=== PATIENT | female | born 1960 | race American Indian/Alaskan Native ===

== ENCOUNTER 2017-03-09 13:53 | Emergency (ER) | payer MEDICARE ==
[2017-03-09 14:32] VITALS: BP 156/84
--- NOTE | 2017-03-09 15:06 | Emergency Department Report ---
<REJI FLORES - Last Filed: 03/09/17 16:58> ED General Adult HPI - General Chief complaint: Hypoglycemia Stated complaint: HYPOGLYCEMIA Time Seen by Provider: 03/09/17 14:51 Source: patient, EMS Mode of arrival: Stretcher Limitations: No Limitations - History of Present Illness Initial comments: pt is a 56 y/o aaf with hx of DMII on lantis 70 units pm, novolog 30 unit ac & hs, pt advises my sugar was 469 last night so I gave myself 75 units of lantus, at breakfast this morning I gave myself 30 unit of novolg as my sugar was 236" pt endorses eating only 2 teaspoons of oatmeal and 3 sips of coffee for breakfast , pt further endorse driving to [employer] brother and was found in car unreponsive by paramedics with BG of 31mg/dl, symptoms completely resolved with D50W 1/2 amp in field by paramedics, bg now 166 in ed, pt is tolerating po intake at this time, without symptoms, Onset/Timin -: hour(s) Radiation: non-radiation Severity scale (0 -10): 0 Associated Symptoms: denies other symptoms Treatments Prior to Arrival: other (D50W 1/2 amp via EMS prior to arrival to ED ) - Related Data Allergies Allergy/AdvReac Type Severity Reaction Status Date / Time acetaminophen [From Percocet] Allergy Itching Verified 03/09/17 14:06 hydromorphone HCl Allergy Nausea Verified 03/09/17 14:06 [From Dilaudid] latex Allergy Rash Verified 03/09/17 14:06 oxycodone Allergy Hives Verified 03/09/17 14:06 oxycodone HCl [From Percocet] Allergy Itching Verified 03/09/17 14:06 ED Review of Systems ROS: Stated complaint: HYPOGLYCEMIA Other details as noted in HPI Constitutional: denies: chills, fever Eyes: denies: eye pain, eye discharge, vision change ENT: denies: ear pain, throat pain Respiratory: denies: cough, shortness of breath, wheezing Cardiovascular: denies: chest pain, palpitations Endocrine: no symptoms reported Gastrointestinal: denies: abdominal pain, nausea, diarrhea Genitourinary: denies: urgency, dysuria, discharge Musculoskeletal: denies: back pain, joint swelling, arthralgia Skin: denies: rash, lesions Neurological: denies: headache, weakness, numbness, paresthesias, confusion, abnormal gait, vertigo Psychiatric: denies: anxiety, depression Hematological/Lymphatic: denies: easy bleeding, easy bruising ED Past Medical Hx - Past Medical History Hx CVA: Yes Hx Diabetes: Yes Additional medical history: kidney transplant. bowel reconstruction - Family History Family history: diabetes - Social History Smoking Status: Never Smoker Substance Use Type: None ED Physical Exam - General Limitations: No Limitations General appearance: alert, in no apparent distress - Head Head exam: Present: atraumatic, normocephalic - Eye Eye exam: Present: normal appearance, PERRL, EOMI Pupils: Present: normal accommodation - ENT ENT exam: Present: mucous membranes moist - Neck Neck exam: Present: normal inspection, full ROM. Absent: lymphadenopathy, thyromegaly - Respiratory Respiratory exam: Present: normal lung sounds bilaterally. Absent: respiratory distress, wheezes, rales, rhonchi, stridor, chest wall tenderness - Cardiovascular Cardiovascular Exam: Present: regular rate, normal rhythm, normal heart sounds. Absent: systolic murmur, diastolic murmur, rubs, gallop - GI/Abdominal GI/Abdominal exam: Present: soft, normal bowel sounds - Rectal Rectal exam: Present: deferred - Extremities Exam Extremities exam: Present: normal inspection - Back Exam Back exam: Present: normal inspection - Neurological Exam Neurological exam: Present: alert, oriented X3, normal gait, reflexes normal. Absent: abnormal gait, motor sensory deficit - Expanded Neurological Exam Expanded Patient oriented to: Present: person, place, time Speech: Present: fluid speech Cranial nerves: EOM's Intact: Normal, Gag Reflex: Normal, Tongue Deviation: Normal, Nystagmus: Normal, Facial Sensation: Normal, Facial Palsy with Forehead Movement: Normal, Facial Palsy without Forehead Movement: Normal Cerebellar function: Finger to Nose: Normal, Heel to [place]: Normal, [place]: Normal Upper motor neuron: Compa Neglect: Normal, Pronator Drift: Normal, Babinski Sign : Normal, Sensory Extinction: Normal Sensory exam: Upper Extremity Light Touch: Normal, Upper Extremity Pin Prick: Normal, Upper Extremity Temperature: Normal, UE 2 Point Discrimination: Normal, Lower Extremity Light Touch: Normal, Lower Extremity Pin Prick: Normal, Lower Extremity Temperature: Normal, LE 2 Point Discrimination: Normal Motor strength exam: RUE: 5, LUE: 5, RLE: 5, LLE: 5 DTR: bicep (R): 2+, bicep (L): 2+, tricep (R): 2+, tricep (L): 2+, knee (R): 2+ , knee (L): 2+, ankle (R): 2+, ankle (L): 2+ Best Eye Response (Nani): (4) open spontaneously Best Motor Response ([place]): (6) obeys commands Best Verbal Response ([place]): (5) oriented Nani Total: 15 - Psychiatric Psychiatric exam: Present: normal affect, normal mood - Skin Skin exam: Present: warm, dry, intact, normal color. Absent: rash ED Course Vital Signs 03/09/17 14:31 Temperature 97.6 F Pulse Rate 77 Respiratory 18 Rate Blood Pressure 156/84 [Left] O2 Sat by Pulse 98 Oximetry - Reevaluation(s) Reevaluation #1: EKGF: NSR, CMP: cr: 1.3, bun: 29, CBC, Trop: 0.010, CXR: pt refused , UA: , CT : no bleed no cva: chronic inflammatory sinuss, microangiopathic changes in white matter , IV: nS 1000cc x 1, quality assurance monitor remains NSR hr 78, no ectopy , repeat BG: pt advised ready to go, cannot stay any longer has to be home for children: pt advised to follow up with PCP Dr. Estevez in 2 days as scheduled for follow up and insulin sliding scale adjustment, pt and family member verbalized agreement and understanding with same. pt is currently: A/ox 3 , demonstrates decision making capacity, currently ambulatory gait steady with nad at this time. pt verbalized agreement and understanding with follow up with pcp in 2 days sunday03/12/2017, 03/09/17 16:34 03/09/17 16:39 ED Medical Decision Making - Lab Data Result diagrams: 03/09/17 15:10 03/09/17 15:10 Laboratory Tests 03/09/17 03/09/17 15:10 15:10 [place] % (Auto) 10.3 H Eos % (Auto) 0.8 [place] # 1.0 H Eos # 0.1 Baso # 0.0 Seg Neutrophils % 76.0 H Seg Neutrophils # 7.2 Sodium 141 Potassium 4.1 Chloride 100.1 Carbon Dioxide 23 Anion Gap 22 BUN 29 H Creatinine 1.3 H Estimated GFR 52 BUN/Creatinine Ratio 22.30 Glucose 169 H Calcium 9.3 Total Bilirubin 0.30 AST 18 ALT 19 Alkaline Phosphatase 52 Troponin T < 0.010 Total Protein 7.5 Albumin 4.2 Albumin/Globulin Ratio 1.3 - EKG Data EKG shows normal: sinus rhythm, ST-T waves (non specific T wave abnormalities ) Rate: normal - EKG Data When compared to previous EKG there are: previous EKG unavailable Interpretation: normal EKG, nonspecific ST-T wave robert - Radiology Data Radiology results: report reviewed interpreted by me: CT hand: chronic sinus inflammatory changes, microorganic white matter changes - Medical Decision Making pt is a 56 y/o aaf with hx of DMII on lantis 70 units pm, novolog 30 unit ac & hs, pt advises my sugar was 469 last night so I gave myself 75 units of lantus, at breakfast this morning I gave myself 30 unit of novolg as my sugar was 236" pt endorses eating only 2 teaspoons of oatmeal and 3 sips of coffee for breakfast , pt further endorse driving to [place] [employer] brother and was found in car unreponsive by paramedics with BG of 31mg/dl, symptoms completely resolved with D50W 1/2 amp in field by paramedics, bg now 166 in ed, pt is tolerating po intake at this time, without symptoms, , exam: pt is currently a/o x 3 with nad , pt has recall up to hypoglycemia episode: remembers turning around to go [employer] brother and then being awakened by paramedics, neuro: CN II-XII grossly intact , PERRLA, EOMI, pt is ambulatory gait is steady there is no weakness no dizziness no lightheadedness no n/v no abdomimal pain , Extremities: rom inact strength 5/5 bilat, pt is tolerating po intake, bg: is 166 mg /dl at this time , lunch tray ordered, plan: EKG, CMP, CBC, Trop, CXR , UA, CT Head, IV, quality assurance monitor, [place] heart score: 1 , NIH: 0 Critical care attestation.: If time is entered above; I have spent that time in minutes in the direct care of this critically ill patient, excluding procedure time. ED Disposition Clinical Impression: Hypoglycemic coma in type 2 diabetes mellitus Disposition: - TO HOME OR SELFCARE Is pt being admited?: No Does the pt Need Aspirin: No Condition: Good Instructions: Diabetes Mellitus Type 2 in Adults (ED) Additional Instructions: Follow up with Dr. Estevez on sunday as scheduled, take all medications as scheduled, check blood glucose levels prior to administration of insulin, do not administer meal time insulin if you are not going to eat a complete meal. Referrals: PRIMARY CARE,MD [Primary Care Provider] - 3-5 Days Forms: Work/School Release Form(ED) Time of Disposition: 16:58 <BLAKE STINSON - Last Filed: 03/13/17 11:21> ED Medical Decision Making - Lab Data Result diagrams: 03/09/17 15:10 03/09/17 15:10 - Medical Decision Making I have seen and examined this patient myself. I agree with the PA or PSYCHIATRIC RN plan as discussed. Javier Stinson
[2017-03-09 15:54] LABS: Alanine Aminotransferase 19 units/L (7-56); Albumin 4.2 g/dL (3.9-5); Albumin/Globulin Ratio 1.3 %; Alkaline Phosphatase 52 units/L (35-129); Anion Gap 22 mmol/L; Blood Urea Nitrogen 29 mg/dL (7-17); Calcium 9.3 mg/dL (8.4-10.2); Carbon Dioxide 23 mmol/L (22-30); Chloride 100.1 mmol/L (98-107); Glucose 169 mg/dL (65-100); Potassium 4.1 mmol/L (3.6-5.0); Sodium 141 mmol/L (137-145); Total Protein 7.5 g/dL (6.3-8.2)
[2017-03-09] MEDS ORDERED: NACL 0.9% 1000 ML 1,000 ML IV ONE (15:56)
--- NOTE | 2017-03-09 16:03 | Cat Scan Report ---
CT head without contrast: History: Syncope. There is severe decreased periventricular white matter changes bilaterally. No focal lesion. No hemorrhage. No mass effect. No extracerebral collection. The visualized bony structures are unremarkable. Partially imaged polypoid mucoperiosteal changes in the anterior right maxillary sinus and along the medial left sinus. No prior study for comparison. Impressions: 1. Severe microangiopathic changes of the white matter. 2. Chronic-appearing maxillary sinus inflammatory changes.
[2017-03-09 16:05] LABS: Basophils % (Auto) 0.4 % (0.0-1.8); Eosinophils % (Auto) 0.8 % (0.0-4.3); Hematocrit 35.7 % (30.3-42.9); Hemoglobin 11.3 gm/dl (10.1-14.3); Mean Corpuscular HGB Conc 32 % (30-34); Mean Corpuscular Volume 77 fl (79-97); Platelet Count 211 K/mm3 (140-440); Red Blood Count 4.63 M/mm3 (3.65-5.03); Red Cell Distribution Width 14.4 % (13.2-15.2); White Blood Count 9.5 K/mm3 (4.5-11.0)
[2017-03-09 16:33] LABS: Mean Corpuscular Hemoglobin 24 pg (28-32)
[2017-03-09 16:44] LABS: Bacteria,Urine 1+ /HPF (Negative); Bilirubin,Urine NEG (Negative); Blood,Urine NEG (Negative); Ketones,Urine NEG (Negative); Leukocyte Esterase,Urine NEG (Negative); Mucus,Urine FEW /HPF; Nitrite,Urine NEG (Negative); Urobilinogen,Urine < 2.0 mg/dL (<2.0)
== END 2017-03-09 17:03 | disposition home or self-care (01) ==
LOC: ED 13:53
DX: E11.641 Type 2 diabetes mellitus with hypoglycemia with coma (principal); Z86.73 Personal history of transient ischemic attack (TIA), and cerebral infarction without residual deficits; Z94.0 Kidney transplant status; Z91.040 Latex allergy status; Z88.8 Allergy status to other drugs, medicaments and biological substances
CPT/HCPCS: 36415; 70450; 80053; 81001; 82962; 84484; 85025; 93005; 93010; 96360

== ENCOUNTER 2017-09-22 13:32 | Emergency (ER) | payer MEDICARE ==
[2017-09-22 13:43] VITALS: BP 215/133
[2017-09-22] MEDS ORDERED: APRESOLINE ONE (13:54)
[2017-09-22] MEDS ORDERED: APRESOLINE PO ONE (13:57)
[2017-09-22 14:35] LABS: Basophils % (Auto) 0.4 % (0.0-1.8); Eosinophils # (Auto) 0.1 K/mm3 (0.0-0.4); Eosinophils % (Auto) 1.1 % (0.0-4.3); Hematocrit 39.7 % (30.3-42.9); Hemoglobin 13.1 gm/dl (10.1-14.3); Lymphocytes # (Auto) 1.6 K/mm3 (1.2-5.4); Lymphocytes % (Auto) 23.9 % (13.4-35.0); Mean Corpuscular HGB Conc 33 % (30-34); Mean Corpuscular Volume 76 fl (79-97); Monocytes # (Auto) 0.8 K/mm3 (0.0-0.8); Platelet Count 179 K/mm3 (140-440); Red Blood Count 5.21 M/mm3 (3.65-5.03); Red Cell Distribution Width 14.4 % (13.2-15.2)
[2017-09-22 14:37] LABS: Mean Corpuscular Hemoglobin 25 pg (28-32)
[2017-09-22 14:45] LABS: Calcium 9.9 mg/dL (8.4-10.2)
--- NOTE | 2017-09-22 15:52 | XRay Report ---
FINAL REPORT EXAM: XR CHEST ROUTINE 2V HISTORY: Shortness of breath TECHNIQUE: Two views of the chest were performed Comparison: None FINDINGS: Heart size is normal. Lungs are clear and well expanded without focal infiltrate or consolidation. There is no effusion. The imaged axial skeleton is unremarkable. IMPRESSION: No definite acute cardiopulmonary disease.
== END 2017-09-22 14:18 | disposition left against medical advice (07) ==
LOC: ED 13:32
DX: R06.02 Shortness of breath (principal); Z53.21 Procedure and treatment not carried out due to patient leaving prior to being seen by health care provider
CPT/HCPCS: 36415; 71046; 80048; 84484; 85025; 93005; 93010

== ENCOUNTER 2018-09-25 08:47 | Outpatient (CLI) | payer MEDICARE ==
--- NOTE | 2018-09-26 07:39 | Nuclear Medicine Report ---
NUCLEAR MEDICINE GASTRIC EMPTYING SCAN HISTORY: Gastroparesis, nausea and vomiting, diabetic. FINDINGS: Anterior abdominal images were obtained for 90 minutes after ingestion of 1 mCi of technetium 99m sulfur cold in oatmeal. Half life for gastric emptying measures 38 minutes. No scintigraphic evidence for reflux disease. IMPRESSION: Normal gastric emptying.
== END 2018-09-25 08:48 | disposition home or self-care (01) ==
LOC: NM 08:47
PROVIDERS: ATTEND Internal Medicine
DX: K31.84 Gastroparesis (principal); E11.641 Type 2 diabetes mellitus with hypoglycemia with coma
CPT/HCPCS: 78264; A9541